=== PATIENT | female | born 2000 | race Hispanic/Latino ===

== ENCOUNTER 2018-10-22 13:10 | Emergency (ER) | payer OTHER ==
[~2018-10-22] VITALS: Ht 162.6 cm; Wt 50.8 kg
[2018-10-22] MEDS ORDERED: SODIUM CHLORIDE 0.9% 1000ML 1,000 ML IV SCH (13:45)
[2018-10-22 14:28] VITALS: BP 149/88
== END 2018-10-22 14:39 | disposition home or self-care (01) ==
LOC: FSED 13:10
DX: R10.11 Right upper quadrant pain (principal); R10.13 Epigastric pain; N93.8 Other specified abnormal uterine and vaginal bleeding; E86.0 Dehydration
CPT/HCPCS: 80048; 80076; 81003; 81025; 85025; 99283